=== PATIENT | male | born 1940 | race Two or more races ===

== ENCOUNTER 2022-09-09 20:30 | Inpatient (IN) | payer MEDICARE, MEDICAID ==
[~2022-09-09] VITALS: Ht 175.3 cm; Wt 65.8 kg
[2022-09-09 23:06] LABS: CHLORIDE 106 mEq/L (98-107)
[2022-09-09 23:08] LABS: BASOPHILS % 0.5 % (0.0-2.0); EOSINOPHILS % 0.4 % (0.0-5.0); HEMATOCRIT. 37.5 % (42.0-52.0); HEMOGLOBIN. 12.6 g/dL (14.0-18.0); LYMPHOCYTES % 12.5 % (20.0-50.0); MEAN CORPUSCULAR HEMOGLOBIN 32.2 pg (28.0-32.0); MEAN CORPUSCULAR VOLUME 95.8 fL (80.0-94.0); MEAN PLATELET VOLUME 8.7 fl (7.4-10.4); MONOCYTES % 7.9 % (2.0-8.0); NEUTROPHILS % 78.7 % (40.0-76.0); PLATELET 248 x1000/uL (130-400); RED BLOOD CELL COUNT 3.91 mill/uL (4.7-6.1); RED CELL DISTRIBUTION WIDTH 13.4 % (11.6-14.6)
[2022-09-09] MEDS ORDERED: SODIUM CHLORIDE 0.9% 1,000 ML IV ONE (23:30)
[2022-09-09 23:34] LABS: CLARITY URINE CLEAR (CLEAR); COLOR URINE YELLOW (YELLOW); KETONES URINE TRACE (NEGATIVE); LEUKOCYTE ESTERASE URINE NEGATIVE (NEGATIVE); NITRITE URINE NEGATIVE (NEGATIVE); OCCULT BLOOD URINE NEGATIVE (NEGATIVE); PH URINE 6.5 (4.5-8.0); PROTEIN URINE NEGATIVE (NEGATIVE); SPECIFIC GRAVITY URINE 1.019 (1.005-1.030)
[2022-09-10] MEDS: CLONIDINE 0.1MG TABLET PO PRN ×2 (12:05→21:57)
[2022-09-10] MEDS ORDERED: IPRATROPIUM/ALBUTEROL 0.5-3(2.5)MG/3ML NEB HHN PRN (15:00)
[2022-09-10] MEDS: ASPIRIN 81MG TABLET PO SCH (15:00)
[2022-09-10] MEDS ORDERED: ONDANSETRON HCL 4MG/2ML INJ IV PRN (15:00)
[2022-09-10] MEDS ORDERED: ACETAMINOPHEN 325MG TABLET PO PRN (15:00)
[2022-09-10] MEDS: ENOXAPARIN 40MG/0.4ML SYR SUBCUT SCH (16:20)
[2022-09-10 20:23] LABS: T4 FREE 1.07 ng/dL (0.76-1.46)
[2022-09-10 21:10] VITALS: BP 151/69
[2022-09-11] VITALS: BP 127/60
[2022-09-11 00:14] LABS: CREATINE KINASE MB FRACTION 1.9 ng/mL (0.5-3.6)
[2022-09-11 04:00] VITALS: BP 116/73
[2022-09-11] MEDS ORDERED: LISI10TA26 PO (05:49)
[2022-09-11] MEDS ORDERED: ATOR40TA70 MT (05:49)
[2022-09-11] MEDS ORDERED: ASPI-986 PO (05:49)
[2022-09-11 08:05] LABS: CREATINE KINASE MB FRACTION 1.3 ng/mL (0.5-3.6)
[2022-09-11] MEDS: ASPIRIN 81MG TABLET PO SCH (09:06)
[2022-09-11 12:00] VITALS: BP 115/57
[2022-09-11] MEDS ORDERED: IOHEXOL-350 100 ML BOTTLE ONE (12:27)
[2022-09-11 16:00] VITALS: BP_SYST 134; BP_SYST 175; BP_SYST 176; BP_DIAS 70; BP_DIAS 74; BP_DIAS 78
[2022-09-11] MEDS: ENOXAPARIN 40MG/0.4ML SYR SUBCUT SCH (16:30)
[2022-09-11 20:00] VITALS: BP 159/71
[2022-09-11] MEDS ORDERED: ATORVASTATIN CALCIUM 40MG TABLET PO SCH (21:00)
[2022-09-12 00:05] VITALS: BP 149/50
[2022-09-12 04:00] VITALS: BP_SYST 136; BP_SYST 141; BP_SYST 145; BP_DIAS 49; BP_DIAS 69; BP_DIAS 71
[2022-09-12 08:00] VITALS: BP 168/64
[2022-09-12] MEDS ORDERED: CLOPIDOGREL 75MG TABLET PO SCH (09:00)
[2022-09-12] MEDS: ASPIRIN 81MG TABLET PO SCH (09:52)
[2022-09-12 12:00] VITALS: BP 137/65
[2022-09-12] MEDS ORDERED: CLOP75TA15 PO (13:01)
[2022-09-12] MEDS ORDERED: ASPI-1160 PO (13:01)
[2022-09-12] MEDS ORDERED: ATOR10TA PO (13:01)
[2022-09-12 14:33] VITALS: BP 137/65
[2022-09-12] MEDS ORDERED: ATORVASTATIN CALCIUM 10MG TABLET PO SCH (21:00)
== END 2022-09-12 16:50 | disposition home or self-care (01) | DRG 74 ==
LOC: EDBD 20:30 → ER 20:30 → MICUSO 09-10 00:58 → EDBEDREQ 09-10 01:00 → 7WST 09-10 21:26
PROVIDERS: ADMIT Internal Medicine; ATTEND Internal Medicine
DX: G90.8 Other disorders of autonomic nervous system (principal); I10 Essential (primary) hypertension; Z20.822 Contact with and (suspected) exposure to COVID-19; I95.9 Hypotension, unspecified; Z79.82 Long term (current) use of aspirin; Z79.899 Other long term (current) drug therapy; Z86.73 Personal history of transient ischemic attack (TIA), and cerebral infarction without residual deficits
CPT/HCPCS: 36415; 70498; 70551; 71045; 80048; 80053; 80061; 81003; 82553; 83036; 83605; 84439; 84443; 84484; 85025; 87426; 87804; 93306; 93880; 95816; 97162; 99291; C9803; J1650; J7030; Q9967